=== PATIENT | male | born 1960 | race African-American/Black ===

== ENCOUNTER 2022-04-24 13:04 | Inpatient (IN) | payer MEDICAID ==
[~2022-04-24] VITALS: Ht 175.3 cm; Wt 90.3 kg
[2022-04-24] MEDS ORDERED: LEVETIRACETAM 1000MG PREMIX 100 ML IV ONE (13:30)
[2022-04-24 14:50] LABS: CHLORIDE 107 mEq/L (98-107)
[2022-04-24 14:59] LABS: BASOPHILS % 0.2 % (0.0-2.0); EOSINOPHILS % 0.9 % (0.0-5.0); HEMATOCRIT. 38.2 % (42.0-52.0); HEMOGLOBIN. 12.1 g/dL (14.0-18.0); LYMPHOCYTES % 9.5 % (20.0-50.0); MEAN CORPUSCULAR HEMOGLOBIN 23.8 pg (28.0-32.0); MEAN CORPUSCULAR VOLUME 75.1 fL (80.0-94.0); MEAN PLATELET VOLUME 7.2 fl (7.4-10.4); MONOCYTES % 8.5 % (2.0-8.0); NEUTROPHILS % 80.9 % (40.0-76.0); PLATELET 442 x1000/uL (130-400); RED BLOOD CELL COUNT 5.09 mill/uL (4.7-6.1); RED CELL DISTRIBUTION WIDTH 15.2 % (11.6-14.6)
[2022-04-24 15:01] LABS: ETHANOL BLOOD < 10 mg/dL; PHOSPHORUS 1.5 mg/dL (2.5-4.9)
[2022-04-24 15:59] LABS: CLARITY URINE CLEAR (CLEAR); COLOR URINE YELLOW (YELLOW); KETONES URINE NEGATIVE (NEGATIVE); LEUKOCYTE ESTERASE URINE NEGATIVE (NEGATIVE); NITRITE URINE NEGATIVE (NEGATIVE); OCCULT BLOOD URINE NEGATIVE (NEGATIVE); PH URINE 7.5 (4.5-8.0); PROTEIN URINE 1+ (NEGATIVE); SPECIFIC GRAVITY URINE 1.016 (1.005-1.030); UROBILINOGEN URINE 0.2 E.U./dL (0.2-1.0)
[2022-04-24] MEDS ORDERED: ENOXAPARIN 80MG/0.8ML SYR SUBCUT ONE (17:15)
[2022-04-24] MEDS ORDERED: ASPIRIN 325MG EC TABLET PO ONE (17:15)
[2022-04-24] MEDS ORDERED: LEVETIRACETAM 500MG TABLET PO STA (17:18)
[2022-04-25 03:15] VITALS: BP 164/93
[2022-04-25 03:30] VITALS: BP 164/93
[2022-04-25 06:52] LABS: HEMATOCRIT 34.9 % (42.0-52.0); HEMOGLOBIN 11.2 g/dL (14.0-18.0); MEAN CORPUSCULAR VOLUME 74.6 fL (80.0-94.0); PLATELET 434 x1000/uL (130-400); RED BLOOD CELL COUNT 4.68 mill/uL (4.7-6.1); RED CELL DISTRIBUTION WIDTH 14.9 % (11.6-14.6)
[2022-04-25 07:02] LABS: CHLORIDE 106 mEq/L (98-107)
[2022-04-25 07:10] LABS: HDL CHOLESTEROL 42 mg/dL (40-59); LDL CHOLESTEROL 74 mg/dL (5-100)
[2022-04-25 08:00] VITALS: BP 125/70
[2022-04-25] MEDS: LEVETIRACETAM 500MG/5ML CUP PO SCH ×2 (10:10→22:45)
[2022-04-25] MEDS: ASPIRIN 81MG TABLET PO SCH (10:10)
[2022-04-25 12:00] VITALS: BP 121/67
[2022-04-25 16:00] VITALS: BP 135/75
[2022-04-25 16:04] LABS: CREATINE KINASE 66 IU/L (39-308)
[2022-04-25] MEDS ORDERED: ENOXAPARIN 40MG/0.4ML SYR SUBCUT SCH (16:30)
[2022-04-25 16:53] LABS: *AMPHETAMINES SCREEN URINE NEGATIVE (NEGATIVE); *BARBITURATES SCREEN URINE NEGATIVE (NEGATIVE); *BENZODIAZEPINES SCREEN URINE NEGATIVE (NEGATIVE); *COCAINE SCREEN URINE NEGATIVE (NEGATIVE); CANNABINOID URINE SCREEN NEGATIVE (NEGATIVE); METHADONE URINE SCREEN NEGATIVE (NEGATIVE); OPIATES URINE SCREEN NEGATIVE (NEGATIVE); PHENCYCLIDINE URINE SCREEN NEGATIVE (NEGATIVE)
[2022-04-25 20:00] VITALS: BP 117/75
[2022-04-25] MEDS: ENOXAPARIN 40MG/0.4ML SYR SUBCUT SCH (20:10)
[2022-04-26] VITALS: BP 126/78
[2022-04-26 04:00] VITALS: BP 139/78
[2022-04-26 06:20] LABS: CHLORIDE 107 mEq/L (98-107)
[2022-04-26 06:22] LABS: HEMATOCRIT. 33.6 % (42.0-52.0); HEMOGLOBIN. 10.9 g/dL (14.0-18.0); MEAN PLATELET VOLUME 7.2 fl (7.4-10.4); PLATELET 423 x1000/uL (130-400); RED BLOOD CELL COUNT 4.54 mill/uL (4.7-6.1); RED CELL DISTRIBUTION WIDTH 15.3 % (11.6-14.6)
[2022-04-26 06:34] LABS: CREATINE KINASE 59 IU/L (39-308); HDL CHOLESTEROL 42 mg/dL (40-59); LDL CHOLESTEROL 83 mg/dL (5-100)
[2022-04-26 10:52] LABS: PLATELET ESTIMATE SLIGHTLY INCREASED
[2022-04-26] MEDS: LEVETIRACETAM 500MG/5ML CUP PO SCH ×2 (11:09→21:03)
[2022-04-26] MEDS: ASPIRIN 81MG TABLET PO SCH (11:09)
[2022-04-26 12:00] VITALS: BP 145/76
[2022-04-26] MEDS ORDERED: AMLODIPINE 2.5MG TABLET PO SCH (14:15)
[2022-04-26 16:00] VITALS: BP 143/80
[2022-04-26] MEDS: ENOXAPARIN 40MG/0.4ML SYR SUBCUT SCH (19:31)
[2022-04-26 19:52] VITALS: BP 143/80
[2022-04-26 20:00] VITALS: BP 134/98
[2022-04-27] VITALS: BP 158/86
[2022-04-27] MEDS ORDERED: AMLODIPINE 2.5MG TABLET PO SCH (09:00)
== END 2022-04-27 00:35 | disposition home or self-care (01) | DRG 53 ==
LOC: ER 13:04 → MICUSO 18:37 → 7EST 04-25 03:39
PROVIDERS: ADMIT Internal Medicine; ATTEND Internal Medicine
PROC: 4A00X4Z Measurement of Central Nervous Electrical Activity, External Approach (ICD-10-PCS; principal; 2022-04-26)
DX: G40.409 Other generalized epilepsy and epileptic syndromes, not intractable, without status epilepticus (principal); I69.351 Hemiplegia and hemiparesis following cerebral infarction affecting right dominant side; D72.821 Monocytosis (symptomatic); D50.9 Iron deficiency anemia, unspecified; F17.200 Nicotine dependence, unspecified, uncomplicated; D72.829 Elevated white blood cell count, unspecified; Z20.822 Contact with and (suspected) exposure to COVID-19; I69.320 Aphasia following cerebral infarction; R41.82 Altered mental status, unspecified; I10 Essential (primary) hypertension; Z79.899 Other long term (current) drug therapy; Z79.82 Long term (current) use of aspirin; Z99.3 Dependence on wheelchair; Z91.14 Patient's other noncompliance with medication regimen
CPT/HCPCS: 36415; 71045; 80048; 80053; 80061; 80305; 80320; 81003; 82550; 82728; 83036; 83540; 83550; 83735; 84100; 84443; 84484; 85025; 85027; 87426; 93005; 93306; 95816; 97162; 97535; 99291; C1893; C9803; J1650; J1953; G0480